=== PATIENT | female | born 1945 | race Caucasian/White ===

== ENCOUNTER → 2021-08-12 11:30 | Outpatient (REF) | payer MEDICARE, SELFPAY ==
--- NOTE | 2021-08-12 | HM_ITS ---
Conclusion : 1. Patient was monitored for total of 6 days and 23 hours 2. Baseline rhythm is NSR with average HR of 57 bpm 3. Frequent sinus bradycardia noted with 32% of time HR < 60 bpm 4. No significant pauses noted 5. Very rare PACs noted with total burden of 0.05% 6. No patient reported events noted MTDD
== END ==
LOC: HO.CARD 11:30
PROVIDERS: Visit Provider Psychiatry & Neurology Neurology
DX: Z86.73 Personal history of transient ischemic attack (TIA), and cerebral infarction without residual deficits (principal)
CPT/HCPCS: 93242